=== PATIENT | female | born 1935 ===

== ENCOUNTER 2020-11-20 08:40 | Day surgery (SDC) | payer OTHER ==
[~2020-11-20] VITALS: Ht 175.3 cm; Wt 84.8 kg
[2020-11-20 09:09] VITALS: BP 129/79
[2020-11-20] MEDS ORDERED: SILD20TA2 PO (09:45)
[2020-11-20] MEDS ORDERED: ASPI-1265 PO (09:45)
[2020-11-20] MEDS ORDERED: metoprolol PO (09:45)
[2020-11-20] MEDS ORDERED: MAGN64TA13 PO (09:45)
[2020-11-20] MEDS ORDERED: MELA3TAB39 PO (09:45)
[2020-11-20] MEDS ORDERED: WARF3TAB56 PO (09:45)
[2020-11-20] MEDS ORDERED: OMEP-50 PO (09:45)
[2020-11-20] MEDS ORDERED: Nystatin (09:45)
[2020-11-20] MEDS ORDERED: LEVO75TA PO (09:45)
[2020-11-20] MEDS ORDERED: LIDOcaine 1%/PF 5ML 10 MG/ML VIAL ONE (09:46)
[2020-11-20] MEDS ORDERED: LIDOcaine 1% 30ml preserv. free vial IV ONE (09:50)
[2020-11-20 10:15] VITALS: BP 129/79
[2020-11-20 10:19] VITALS: BP 125/71
== END 2020-11-20 11:10 ==
LOC: SSTAY O 08:40
PROVIDERS: ATTEND Radiology Diagnostic Radiology
DX: Z49.01 Encounter for fitting and adjustment of extracorporeal dialysis catheter (principal); Z88.1 Allergy status to other antibiotic agents; Z88.8 Allergy status to other drugs, medicaments and biological substances; Z79.899 Other long term (current) drug therapy
CPT/HCPCS: 36589